=== PATIENT | female | born 1965 | race Asian ===

== ENCOUNTER 2024-01-13 20:51 | Observation (INO) | payer OTHER ==
[2024-01-13 21:57] LABS: BASO % 0.4 % (0-2.0); EOS % 0.3 % (0-4.5); HEMATOCRIT 39.1 % (32.4-45.2); HEMOGLOBIN 13.3 GM/dL (10.7-15.3); LYMPH % 8.9 % (8-40); MCH 31.4 pg (25.7-33.7); MEAN CELL VOLUME 92.6 fl (80-96); MEAN PLT VOLUME 7.3 fl (7.5-11.1); MONO % 4.9 % (3.8-10.2); NEUT % 85.5 % (42.8-82.8); PLATELET COUNT 261 10^3/uL (134-434); RBC 4.22 M/mm3 (3.60-5.2); RDW 12.9 % (11.6-15.6); WHITE BLOOD COUNT 14.1 K/mm3 (4.0-10.0)
[2024-01-13 22:18] LABS: POTASSIUM 4.1 mmol/L (3.5-5.1)
[2024-01-13 22:20] LABS: CALCIUM 9.3 mg/dL (8.5-10.1)
[2024-01-13 22:21] LABS: ALBUMIN 3.8 g/dl (3.4-5.0); BLOOD UREA NITROGEN 16.9 mg/dL (7-18)
[2024-01-13 22:24] LABS: CREATININE 1.3 mg/dL (0.55-1.3)
[2024-01-13 22:26] LABS: BILIRUBIN,TOTAL 0.4 mg/dL (0.2-1); TOT PROT 7.6 g/dl (6.4-8.2)
[2024-01-13 23:33] LABS: EPI CELLS 16 /uL (0-25.1); HYALINE CASTS 2 /uL (0-3.1); URINE APPEARANCE CLEAR; URINE BACTERIA 218 /uL (0-1359); URINE BILIRUBIN NEGATIVE (NEGATIVE); URINE COLOR YELLOW; URINE GLUCOSE (UA) NEGATIVE (NEGATIVE); URINE KETONE TRACE (NEGATIVE); URINE LEUK ESTERASE 1+ (NEGATIVE); URINE NITRITE NEGATIVE (NEGATIVE); URINE PROTEIN TRACE (NEGATIVE); URINE RBC 36 /uL (0-23.9); URINE WBC 72 /uL (0-25.8)
[2024-01-14 04:49] VITALS: BMI 28.3
[2024-01-14] MEDS: LEVOTHYROXINE NA 50 MCG TABLET (FP) PO SCH (06:27)
[2024-01-14 06:34] LABS: URINE BARBITURATES NEGATIVE (NEGATIVE)
[2024-01-14 06:35] LABS: METHADONE, UR NEGATIVE (NEGATIVE); OPIATES, URI NEGATIVE (NEGATIVE); PHENCYCLIDINE,URINE NEGATIVE (NEGATIVE)
[2024-01-14 06:52] LABS: COCAINE, UR NEGATIVE (NEGATIVE); URINE AMPHETAMINES NEGATIVE (NEGATIVE); URINE BENZODIAZEPINES NEGATIVE (NEGATIVE)
[2024-01-14 08:30] LABS: CHOLESTEROL 232 mg/dL (50-200)
[2024-01-14 08:31] LABS: LDL CHOLESTEROL (ONLY SJRH) 159 mg/dL (5-100)
[2024-01-14 08:33] LABS: HDL CHOLESTEROL 62 mg/dL (40-60)
[2024-01-14] MEDS: amLODIPine BESYLATE 2.5 MG TABLET (FP) PO SCH (09:28)
[2024-01-14] MEDS: ENOXAPARIN NA (PORCINE) 40 MG/0.4 ML DISP.SYRIN SQ SCH (09:28)
[2024-01-14 09:42] VITALS: RESP 18
[2024-01-14 15:46] VITALS: BP 107/70; PULSE 67; TEMP 98
== END 2024-01-14 18:07 | disposition home or self-care (01) ==
LOC: JER 20:51 → JERBED 01-14 01:01 → J4W 01-14 04:20
PROVIDERS: ADMIT Internal Medicine; ATTEND Internal Medicine
PROC: 3E03329 Introduction of Other Anti-infective into Peripheral Vein, Percutaneous Approach (ICD-10-PCS; principal; 2024-01-14)
PROC: 3E023GC Introduction of Other Therapeutic Substance into Muscle, Percutaneous Approach (ICD-10-PCS; 2024-01-14)
DX: R55 Syncope and collapse (principal); U07.1 COVID-19; I10 Essential (primary) hypertension; E03.9 Hypothyroidism, unspecified
CPT/HCPCS: 0241U-QW; 36415; 70450-TC; 71046-TC-FY; 73700-TC-RT; 80053; 80061; 80307; 81003; 82962; 84436; 84439; 84443; 84484; 85025; 87086; 93005; 93010; 93880-TC; 93971-TC; 96365; 96372; 99285-25; G0378